=== PATIENT | male | born 1990 | race Caucasian/White ===

== ENCOUNTER 2022-11-25 11:39 | Emergency (ER) | payer OTHER, SELFPAY ==
[2022-11-25 11:43] VITALS: BP 150/104; PULSE 80; RESP 20; TEMP 37; O2SAT 100
[2022-11-25 12:15] LABS: Appearance Urine Clear (Clear); Bilirubin Urine Negative (Negative); Blood Urine Negative (Negative); Color Urine Light Yellow (Yellow); Glucose Urine UA Negative (Negative); Ketones Urine Negative (Negative); Leukocyte Esterase Ur Negative LEU/UL (Negative); Nitrate Urine Negative (Negative); Protein Urine Negative (Negative); Urobilinogen Urine 0.2 mg/dL (0.2-1.0)
[2022-11-25 12:18] LABS: Add Urine Microscopic? NO
--- NOTE | 2022-11-25 12:34 | ED.GENADULT ---
HPI - General Adult General Chief complaint: Urogenital-Male Stated complaint: Testicular pain Time Seen by Provider: 11/25/22 12:03 History of Present Illness HPI narrative: Healthy 32yo man h/o autism spectrum, intellectual disability, brought by Dad with concern for a tingling discomfort in the middle of the penis for the past several days. No fevers, chills, rash, swelling, or difficulty urinating. Sometimes there is a dysuria, stinging with urination. Was seen at clinic and was told abx would be prescribed but nothing was sent to pharmacy. Related Data Allergies Allergy/AdvReac Type Severity Reaction Status Date / Time No Known Drug Allergies Allergy Other Verified 11/25/22 12:39 Review of Systems Review of Systems: All systems reviewed & are unremarkable except as noted in HPI and below Constitutional: Constitutional: Denies fever(s) ENT: Denies dysphagia Cardiovascular: Cardiovascular: Denies chest pain Respiratory: Respiratory: Denies chest congestion and Denies dyspnea PMFSH Social History Social History Smoking status: Never smoker Exam Const: General: healthy appearing, no acute distress and alert Nutritional Appearance: well nourished Eyes: Conjunctivae: conjunctivae normal Resp: Effort & Inspection: normal respiratory effort and not labored Cardio: Rate: regular rate Rhythm: regular rhythm GI: Inspection: non-distended Skin: General skin exam: normal color, no jaundice and no pallor Neuro: Gait exam (Neuro): Normal gait present Extrem: General: no clubbing, cyanosis or edema Course Vital Signs Vital signs: Vital Signs Temperature 37.0 C 11/25/22 11:43 Pulse Rate 80 11/25/22 11:43 Respiratory Rate 20 11/25/22 11:43 Blood Pressure 150/104 H 11/25/22 11:43 Pulse Oximetry 100 11/25/22 11:43 Oxygen Delivery Room Air 11/25/22 11:43 Temperature 37.0 C 11/25/22 11:43 Pulse Rate 80 11/25/22 11:43 Respiratory Rate 20 11/25/22 11:43 Blood Pressure 150/104 H 11/25/22 11:43 Pulse Oximetry 100 11/25/22 11:43 Oxygen Delivery Room Air 11/25/22 11:43 Medical Decision Making MDM Narrative Medical decision making narrative: stinging dysuria DDx UTI, urethritis, balanitis, epididymitis, trauma. UA normal. Will treat empirically based on symptomatology. Send UA for culture. Vital Signs Vital Signs: Vital Signs Temperature 37.0 C 11/25/22 11:43 Pulse Rate 80 11/25/22 11:43 Respiratory Rate 20 11/25/22 11:43 Blood Pressure 150/104 H 11/25/22 11:43 Pulse Oximetry 100 11/25/22 11:43 Oxygen Delivery Room Air 11/25/22 11:43 Temperature 37.0 C 11/25/22 11:43 Pulse Rate 80 11/25/22 11:43 Respiratory Rate 20 11/25/22 11:43 Blood Pressure 150/104 H 11/25/22 11:43 Pulse Oximetry 100 11/25/22 11:43 Oxygen Delivery Room Air 11/25/22 11:43 Lab Data Labs: Lab Results 11/25/22 Range/Units 12:04 Urine Color Light yellow (Yellow) Urine Appearance Clear (Clear) Urine pH 6.0 (5.0-8.0) Ur Specific [place] 1.020 (1.010-1.020) Urine Protein Negative (Negative) Urine Glucose (UA) Negative (Negative) Urine Ketones Negative (Negative) Ur Blood (Man) Negative (Negative) Urine Nitrate Negative (Negative) Urine Bilirubin Negative (Negative) Urine Urobilinogen 0.2 (0.2-1.0) mg/dL Leukocyte Esterase Rfl Negative (Negative) SHERYL/UL Discharge Plan Discharge Clinical Impression: Dysuria Patient Disposition: Home, Self-Care Condition: Stable Instructions: Antibiotic Form Additional Instructions: Complete the entire course of antibiotics as prescribed. For pain, take Ibuprofen 800 mg every 6 hours as needed. Prescriptions: New ciprofloxacin HCl 500 mg tablet 500 mg PO BID 5 Days Qty: 10 0RF Follow-up/Referrals: UNKNOWN,DOCTOR [Primary Care Provider] - Time of Di
[2022-11-25 13:16] VITALS: BP 135/86; PULSE 81; RESP 20; TEMP 36.9; O2SAT 100
--- NOTE | 2022-12-10 11:17 | PC.NURSE ---
FINAL URINE CULTURE RESULT: NO GROWTH
== END 2022-11-25 13:16 | disposition home or self-care (01) ==
LOC: CHSED 13:00
PROVIDERS: Emergency Provider Emergency Medicine
DX: R30.0 Dysuria (principal); F84.0 Autistic disorder
CPT/HCPCS: 81003; 87086; 99283

== ENCOUNTER 2022-12-22 11:42 | Outpatient (NON) | payer OTHER, SELFPAY | END 2022-12-22 11:43 | disposition home or self-care (01) | LOC: CHSLAB 11:44 | PROVIDERS: Visit Provider Nurse Practitioner Family | DX: R30.0 Dysuria (principal); R82.90 Unspecified abnormal findings in urine; R30.9 Painful micturition, unspecified; N39.0 Urinary tract infection, site not specified | CPT/HCPCS: 87086; 87491; 87591; 87661 ==

== ENCOUNTER 2024-07-01 11:15 | Emergency (ER) | payer OTHER, MEDICAID, SELFPAY ==
--- NOTE | 2024-07-01 11:18 | ED.URI ---
HPI - URI/Sore Throat General Chief Complaint: Upper Respiratory Infection Stated Complaint: URI Time Seen by Provider: 07/01/24 11:18 Source: patient Mode of arrival: ambulatory Limitations: no limitations History of Present Illness HPI Narrative: 33-year-old male with a history of autism, intellectual disability presents to the ED with a 4 day history of -- nasal congestion clear rhinorrhea -- sore throat -- nonproductive cough -- right hand rash involving the knuckles and the interdigital clefts no chest pain or shortness of breath no fever or chills MD elicited complaint: cough, sore throat, rhinorrhea and nasal congestion Onset (ago): day(s) ( 4 days) Consistency: constant Severity: mild Description of mucous: watery Able to tolerate fluids by mouth: Yes Exacerbating factors: nothing Relieving factors: nothing Associated symptoms: denies other symptoms, rhinorrhea, nasal congestion, sore throat and cough Treatments prior to arrival: none Related Data Allergies Allergy/AdvReac Type Severity Reaction Status Date / Time No Known Drug Allergies Allergy Other Verified 06/13/24 14:57 Review of Systems Review of Systems: All systems reviewed & are unremarkable except as noted in HPI and below Constitutional: Constitutional: Reports as per HPI and Reports no additional constitutional complaints Eyes: Eyes: Reports as per HPI and Reports no additional eye complaints ENT: Reports system reviewed and no additional complaints, except as documented, Reports as per HPI, Reports nasal congestion and Reports sore throat Cardiovascular: Cardiovascular: Reports as per HPI and Reports no additional cardiovascular complaints Respiratory: Respiratory: Reports as per HPI, Reports no additional respiratory complaints and Reports cough Gastrointestinal: Gastrointestinal: Reports as per HPI and Reports no additional gastrointestinal complaints Genitourinary: Genitourinary: Reports no additional male genitourinary complaints and Reports as per HPI Musculoskeletal: Musculoskeletal: Reports no additional musculoskeletal complaints and Reports as per HPI Integumentary/Breasts: Comments: dry scaly rash of the right hand involving the knuckles on the interdigital clefts. This is itchy Neurologic: Reports system reviewed and no additional complaints, except as documented and Reports as per HPI Psychiatric: Psychiatric: Reports no additional psychiatric complaints and Reports as per HPI Endocrine: Endocrine: Reports no additional endocrine complaints and Reports as per HPI Hematologic/Lymphatic: Hematologic/Lymphatic: Reports no additional hematologic/lymphatic complaints and Reports as per HPI Allergic/Immunologic: Allergic/Immunologic: Reports no additional allergic/immunologic complaints and Reports as per [facility] Past Medical History Medical History (Updated 07/01/24 @ 13:07 by Satya Wick MD) Intellectual disability Autism Social History Social History Smoking status: Never smoker Substance use: never Substance use type: does not use Lack of Transportation: No Lack of Food: Never True Current Housing: I Have Housing Concerned About Future Housing: No Difficulty Paying Gas/Electric Bills: No Difficulty Paying for Meds: No Currently Unemployed: No Education: High School Diploma/GED Difficulty w/ Childcare or Family Care: No Living arrangements: with family Occupation/Education: other Additional occupation/education comments: Disabled Exam Narrative: vitals are stable. Afebrile. Const: General: healthy appearing and no acute distress Nutritional Appearance: well nourished Orientation/consciousness: patient oriented x3 Limitations: no limitations HENMT: Head: normal to inspection Ears: external ears normal Face/Nose/Sinus: Normal external nose present Face and sinus: normal facial exam Mouth: Yes Normal oral and palatal mucosa present Other: pharyngeal erythema Eyes: Conjunctivae: conjunctivae normal Pupils: Equal, round and reactive pupils present EOM: EOMs intact bilaterally Direct Ophthalmoscopy: no photophobia Neck: Neck: normal visual inspection, no lymphadenopathy and no meningeal signs Chest: Chest palpation & inspection: normal inspection of the chest Resp: Effort & Inspection: normal respiratory effort Auscultation: clear to auscultation bilaterally Cardio: Rate: regular rate Rhythm: regular rhythm GI: GI Palp: Yes Soft to palpation Other: No tenderness/rigidity /rebound : General: Yes no CVA tenderness Back/Spine/Pelvis: Back: no CVA tenderness Skin: General skin exam: normal color Rashes: no rashes Wounds: no wounds Neuro: General: patient oriented x3, moves all extremities, no meningeal signs, no focal motor deficits and CN's II-XI intact bilaterally Cranial nerves: Yes Nystagmus not present Speech: normal speech Gait exam (Neuro): Normal gait present Extrem: General: normal to inspection, no clubbing, cyanosis or edema and no pedal edema Psych: Mental Status: mental status grossly normal Affect: normal affect Attitude: cooperative Course Course Emergency Course: upper respiratory tract infection-- tested positive for RSV. Tested negative for influenza and COVID Vital Signs Vital signs: Vital Signs Temperature 36.7 C 07/01/24 11:24 Pulse Rate 74 07/01/24 11:24 Respiratory Rate 18 07/01/24 11:24 Blood Pressure 146/85 H 07/01/24 11:24 Pulse Oximetry 97 07/01/24 11:24 Oxygen Delivery Room Air 07/01/24 11:24 Temperature 36.6 C 07/01/24 12:50 Pulse Rate 67 07/01/24 12:50 Respiratory Rate 18 07/01/24 12:50 Blood Pressure 132/85 07/01/24 12:50 Pulse Oximetry 100 07/01/24 12:50 Oxygen Delivery Room Air 07/01/24 12:50 MDM - URI/Sore Throat MDM Narrative Medical decision making narrative: RSV upper respiratory tract infection Differential Diagnosis Differential diagnosis: Likely viral infection and influenza Medical Records Attestation: I reviewed the patient's medical records. Lab Data Attestation: I reviewed the patient's lab results. Labs: Lab Results 07/01/24 Range/Units 11:44 Nasal MRSA (PCR) Cancelled Influenza A (RT-PCR) Negative (Negative) Influenza B (RT-PCR) Negative (Negative) RSV (RT-PCR) Positive A (Negative) SARS-CoV-2 RNA (RT-PCR) Negative (Negative) Group A Strep (PCR) Not detected (Negative) Discharge Plan Discharge Clinical Impression: Upper respiratory infection Patient Disposition: Home, Self-Care Condition: Stable Instructions: Antibiotic Form Patient Language: Telugu Prescriptions: No Action permethrin 5 % cream 1 applic topical Q14D Qty: 60 0RF Rx Instructions: apply second treatment 14 days after first treatment Follow-up/Referrals: Rebecca Lauren NP [Primary Care Provider] - Time of Disposition: 13:07
[2024-07-01 11:24] VITALS: BP 146/85; PULSE 74; RESP 18; TEMP 36.7; O2SAT 97
--- NOTE | 2024-07-01 11:46 | PC.NURSE ---
Covid culture sent to lab
[2024-07-01 12:15] LABS: Strep Group A RT-PCR NOT DETECTED (Negative)
[2024-07-01 12:25] LABS: SARS-CoV-2 RNA PCR Negative (Negative)
[2024-07-01 12:33] LABS: Influenza A QL RT-PCR Negative (Negative); Influenza B QL RT-PCR Negative (Negative); RSV RNA, RT-PCR Positive (Negative)
[2024-07-01 12:50] VITALS: BP 132/85; PULSE 67; RESP 18; TEMP 36.6; O2SAT 100
== END 2024-07-01 13:12 | disposition home or self-care (01) ==
PROVIDERS: Emergency Provider Internal Medicine Critical Care Medicine; PCP Nurse Practitioner Family
DX: J06.9 Acute upper respiratory infection, unspecified (principal); B97.4 Respiratory syncytial virus as the cause of diseases classified elsewhere; F84.0 Autistic disorder; F79 Unspecified intellectual disabilities; Z20.822 Contact with and (suspected) exposure to COVID-19
CPT/HCPCS: 87637; 87651; 99282